=== PATIENT | male | born 1985 | race Caucasian/White ===

== ENCOUNTER 2019-02-21 21:27 | Emergency (ER) | payer OTHER ==
[2019-02-21] MEDS ORDERED: Adacel (T-DAP) 0.5 ML SYRINGE ONE (21:47)
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
== END 2019-02-21 22:14 | disposition home or self-care (01) ==
LOC: ERS 21:27
DX: S51.832A Puncture wound without foreign body of left forearm, initial encounter (principal); L03.114 Cellulitis of left upper limb; W26.8XXA Contact with other sharp object(s), not elsewhere classified, initial encounter
CPT/HCPCS: 90471; 90715

== ENCOUNTER 2020-09-26 09:04 | Inpatient (IN) | payer OTHER ==
[2020-09-26] MEDS ORDERED: Acetaminophen 500 MG TAB ONE (09:30)
[2020-09-26] MEDS ORDERED: Dexamethasone 10 MG/ML VIAL ONE (09:30)
[2020-09-26] MEDS ORDERED: Aspirin 325 MG TAB ONE (09:30)
[2020-09-26 09:54] LABS: #Lymphocytes 0.6 thou/uL (1.20-3.40); #Monocytes 0.2 thou/uL (0.11-0.59); %Basophils 0.5 % (0.0-1.0); %Eosinophils 0.1 % (0.0-10.0); %Lymphocytes 16.2 % (21.0-51.0); %Monocytes 6.1 % (0.0-10.0); %Neutrophils 77.1 % (42.0-75.0); Hemoglobin 15.3 g/dL (14.0-18.0); Mean Corpuscular HGB CONC 33.5 g/dL (32.0-36.0); Mean Corpuscular Hemoglobin 31.8 pg (27.0-31.0); Mean Corpuscular Volume 94.9 fL (78.0-98.0); Mean Platelet Volume 8.2 fL (7.4-10.4); Platelet Count 151 thou/uL (130-400); RBC Distribution Width 11.6 % (11.5-14.5); Red Blood Cell (RBC) Count 4.82 mill/uL (4.70-6.10); White Blood Cell (WBC) Count 3.9 thou/uL (4.8-10.8)
[2020-09-26 10:13] LABS: ALT (SGPT) 28 U/L (8-55); AST (SGOT) 56 U/L (5-34); Albumin 3.7 g/dL (3.5-5.0); Alkaline Phosphatase 52 U/L (40-110); Anion Gap 13 mmol/L (10-20); BUN (Urea Nitrogen) 7 mg/dL (8.9-20.6); Bilirubin, Total 0.3 mg/dL (0.2-1.2); CK (CPK) 942 U/L (30-200); Calc. Creatinine Clearance 0 mL/min (70-130); Calcium 8.5 mg/dL (7.8-10.44); Carbon Dioxide 26 mmol/L (22-29); Chloride 102 mmol/L (98-107); Globulin 3.4 g/dL (2.4-3.5); Glucose 109 mg/dL (70-105); Lipase 56 U/L (8-78); Potassium 3.8 mmol/L (3.5-5.1); Protein, Total 7.1 g/dL (6.0-8.3); Sodium 137 mmol/L (136-145)
[2020-09-26] MEDS ORDERED: Azithromycin 500 MG VIAL ONE (11:39)
[2020-09-26] MEDS ORDERED: Enoxaparin Sodium 80 MG/0.8 ML SYRINGE ONE (11:55)
[2020-09-26] MEDS ORDERED: Iopamidol 370 76% 100 ML VIAL ONE (12:43)
[2020-09-26] MEDS ORDERED: Ibuprofen 800 MG TAB ONE (12:47)
[2020-09-26 13:23] LABS: Troponin I 0.012 ng/mL (< 0.028)
[2020-09-26] MEDS ORDERED: hydrALAZINE 20 MG/ML VIAL SLOW IVP PRN (14:52)
[2020-09-26] MEDS ORDERED: Ivermectin 3 MG TAB PO SCH (14:52)
[2020-09-26] MEDS ORDERED: Ondansetron PF 4 MG/2 ML Vial IVP PRN (14:52)
[2020-09-26] MEDS ORDERED: Acetaminophen 500 MG TAB PO PRN (14:52)
[2020-09-26] MEDS ORDERED: Ondansetron ODT 4 MG TAB PO PRN (14:52)
[2020-09-26 15:55] VITALS: BMI 20.9
[2020-09-26 16:18] LABS: Troponin I Less than 0.010 ng/mL (< 0.028)
[2020-09-26 21:00] LABS: SARS-CoV-2 PCR by NAA DETECTED (NotDetected)
[2020-09-26] MEDS ORDERED: Cholecalciferol 1,000 UNITS (25 MCG) TAB PO SCH (21:00)
[2020-09-26] MEDS: Ascorbic Acid 500 mg Chewable Tablet PO SCH (21:09)
[2020-09-26] MEDS: Famotidine 20 MG TAB PO SCH (21:10)
[2020-09-26] MEDS: Benzonatate 100 MG CAP PO PRN (21:10)
[2020-09-26] MEDS: Enoxaparin Sodium 40 MG/0.4 ML SYRINGE SC SCH (21:10)
[2020-09-26] MEDS: Dexamethasone 10 MG/ML VIAL SLOW IVP SCH (21:12)
[2020-09-27] MEDS: Sodium Chloride 0.9% 1,000 ML IV SCH ×2 (02:35→12:58)
[2020-09-27 05:53] LABS: #Lymphocytes 0.8 thou/uL (1.20-3.40); #Monocytes 0.2 thou/uL (0.11-0.59); %Eosinophils 0.2 % (0.0-10.0); %Lymphocytes 25.8 % (21.0-51.0); %Monocytes 7.3 % (0.0-10.0); %Neutrophils 66.7 % (42.0-75.0); Hemoglobin 14.8 g/dL (14.0-18.0); Mean Corpuscular HGB CONC 32.3 g/dL (32.0-36.0); Mean Corpuscular Hemoglobin 30.6 pg (27.0-31.0); Mean Corpuscular Volume 94.8 fL (78.0-98.0); Mean Platelet Volume 7.8 fL (7.4-10.4); Platelet Count 186 thou/uL (130-400); RBC Distribution Width 11.7 % (11.5-14.5); Red Blood Cell (RBC) Count 4.83 mill/uL (4.70-6.10)
[2020-09-27 06:18] LABS: ALT (SGPT) 32 U/L (8-55); AST (SGOT) 50 U/L (5-34); Albumin 3.6 g/dL (3.5-5.0); Alkaline Phosphatase 51 U/L (40-110); Anion Gap 13 mmol/L (10-20); BUN (Urea Nitrogen) 10 mg/dL (8.9-20.6); Bilirubin, Total 0.2 mg/dL (0.2-1.2); Calc. Creatinine Clearance 116 mL/min (70-130); Calcium 9.1 mg/dL (7.8-10.44); Carbon Dioxide 24 mmol/L (22-29); Chloride 109 mmol/L (98-107); Globulin 3.4 g/dL (2.4-3.5); Glucose 154 mg/dL (70-105); Potassium 3.8 mmol/L (3.5-5.1); Sodium 142 mmol/L (136-145)
[2020-09-27] MEDS ORDERED: Zinc Sulfate 220 MG CAP PO SCH (09:00)
[2020-09-27] MEDS: Famotidine 20 MG TAB PO SCH (09:10)
[2020-09-27] MEDS: Ascorbic Acid 500 mg Chewable Tablet PO SCH (09:10)
[2020-09-27] MEDS: Enoxaparin Sodium 40 MG/0.4 ML SYRINGE SC SCH (09:11)
[2020-09-27] MEDS: Benzonatate 100 MG CAP PO PRN (09:11)
[2020-09-27] MEDS: Dexamethasone 10 MG/ML VIAL SLOW IVP SCH (09:13)
[2020-09-27 13:05] VITALS: BP 115/72; TEMP 98
== END 2020-09-27 15:25 | disposition home or self-care (01) | DRG 177 ==
LOC: ERS 09:04 → T4-A 14:52
PROVIDERS: ADMIT Family Medicine; ATTEND Family Medicine
DX: U07.1 COVID-19 (principal); J12.82 Pneumonia due to coronavirus disease 2019; J96.01 Acute respiratory failure with hypoxia; K50.90 Crohn's disease, unspecified, without complications; Z88.0 Allergy status to penicillin
CPT/HCPCS: 36415; 71045; 71275; 80053; 82550; 82728; 83690; 83880; 84484; 85025; 85379; 86140; 87635; 93005; 96365; 96372; 96375; J0456; J1100; J1650; Q9967; U0003; U0005

== ENCOUNTER 2023-07-21 10:14 | Emergency (ER) | payer OTHER ==
[2023-07-21] MEDS ORDERED: Dexamethasone 10 MG/ML VIAL ONE (10:39)
[2023-07-21] MEDS ORDERED: Albuterol 200 PUFF (6.7GM INHALER) ONE (10:39)
[2023-07-21 11:08] LABS: #Eosinphils 0.1 thou/uL (0.0-0.7); #Monocytes 0.7 thou/uL (0.11-0.59); #Neutrophils 8.4 thou/uL (1.40-6.50); %Basophils 0.2 % (0.0-1.0); %Eosinophils 0.6 % (0.0-10.0); %Lymphocytes 16.8 % (21.0-51.0); %Monocytes 5.9 % (0.0-10.0); %Neutrophils 76.2 % (42.0-75.0); Hematocrit 45.6 % (42.0-52.0); Hemoglobin 15.9 g/dL (14.0-18.0); Mean Corpuscular HGB CONC 34.9 g/dL (32.0-36.0); Mean Corpuscular Hemoglobin 33.3 pg (27.0-31.0); Mean Corpuscular Volume 95.4 fl (78.0-98.0); Mean Platelet Volume 10.4 fL (7.4-10.4); Platelet Count 336 10x3/uL (130-400); RBC Distribution Width 13.2 % (11.5-14.5); Red Blood Cell (RBC) Count 4.78 mill/uL (4.70-6.10); White Blood Cell (WBC) Count 11.1 10x3/uL (4.8-10.8)
[2023-07-21 11:25] LABS: ALT (SGPT) 13 U/L (8-55); AST (SGOT) 14 U/L (5-34); Albumin 5.1 g/dL (3.5-5.0); Alkaline Phosphatase 50 U/L (40-110); Anion Gap 12 mmol/L (10-20); BUN (Urea Nitrogen) 7 mg/dL (8.9-20.6); Bilirubin, Total 0.7 mg/dL (0.2-1.2); Calc. Creatinine Clearance 0 mL/min (70-130); Calcium 10.4 mg/dL (7.8-10.44); Carbon Dioxide 26 mmol/L (22-29); Chloride 105 mmol/L (98-107); Estimated GFR 109; Globulin 3.5 g/dL (2.4-3.5); Glucose 112 mg/dL (70-105); Potassium 3.6 mmol/L (3.5-5.1); Protein, Total 8.6 g/dL (6.0-8.3); Sodium 139 mmol/L (136-145)
[2023-07-21 11:28] LABS: Troponin I Less than 0.010 ng/mL (< 0.028)
== END 2023-07-21 12:15 | disposition home or self-care (01) ==
LOC: ERS 10:14
DX: R06.02 Shortness of breath (principal); R06.89 Other abnormalities of breathing; Z87.891 Personal history of nicotine dependence; K21.9 Gastro-esophageal reflux disease without esophagitis; Z79.899 Other long term (current) drug therapy
CPT/HCPCS: 36415; 71045; 80053; 84484; 85025; 85379; 93005; J1100

== ENCOUNTER 2023-09-02 15:43 | Emergency (ER) | payer OTHER ==
[2023-09-02] MEDS ORDERED: HYDROcodone/Acetaminophen 5/325 mg Tablet ONE (15:53)
[2023-09-02] MEDS ORDERED: Ibuprofen 200 MG TAB ONE (15:53)
== END 2023-09-02 16:01 | disposition home or self-care (01) ==
LOC: ERS 15:43
DX: K03.81 Cracked tooth (principal); K50.90 Crohn's disease, unspecified, without complications
CPT/HCPCS: 99282